=== PATIENT | male | born 1960 | race Caucasian/White ===

== ENCOUNTER 2023-03-21 12:43 | Inpatient (IN) | payer MEDICAID ==
[~2023-03-21] VITALS: Ht 175.3 cm; Wt 111.6 kg
[~2023-03-21 12:43] MED LIST: AMOX-422 PO; CYCL-394 PO; HYDR-2514 PO; HYDR1TAB PO; htn med
[2023-03-21 13:54] LABS: BASOPHILS % (AUTO) 0.5 % (0-1); EOSINOPHILS % (AUTO) 0.7 % (0-6); HEMATOCRIT 38.2 % (42.0-52.0); LYMPHOCYTES # (AUTO) 0.9 X10'3 (1.1-4.8); LYMPHOCYTES % (AUTO) 15.5 % (21-51); MEAN CORPUSCULAR HGB CONC 34.1 g/dL (33.0-36.5); MEAN CORPUSCULAR VOLUME 90.7 FL (78-98); MEAN PLATELET VOLUME 8.1 FL (7.4-10.4); MONOCYTES # (AUTO) 0.4 X10'3 (0-0.9); MONOCYTES % (AUTO) 7.1 % (2-12); NEUTROPHILS # (AUTO) 4.6 X10'3 (1.8-7.7); NEUTROPHILS % (AUTO) 76.2 % (42-75); PLATELET COUNT 150 X10'3 (140-440); RED BLOOD COUNT 4.21 X10'6 (4.70-6.10); RED CELL DISTRIBUTION WIDTH 12.8 % (11.5-14.5); WHITE BLOOD COUNT 6.1 X10'3 (4.5-11.0)
[2023-03-21 14:13] LABS: GLUCOSE 97 MG/DL (70-104); POTASSIUM 4.4 MMOL/L (3.5-5.1); SODIUM 138 MMOL/L (135-145)
[2023-03-21 14:14] LABS: ALANINE AMINOTRANSFERASE 22 U/L (12-78); ALBUMIN 3.6 G/DL (3.4-5.0); ALBUMIN/GLOBULIN RATIO 0.9 (1.1-1.5); ALKALINE PHOSPHATASE 95 IU/L (46-116); ANION GAP 9 (8-16); ASPARTATE AMINO TRANSFERASE 22 U/L (10-37); BILIRUBIN,TOTAL 0.8 MG/DL (0.1-1.0); BLOOD UREA NITROGEN 21 MG/DL (7-18); BUN/CREATININE RATIO 12.4 (10.0-20.0); CALCIUM 8.7 MG/DL (8.5-10.1); CHLORIDE 103 MMOL/L (99-107); CREATININE 1.69 MG/DL (0.60-1.10); TOTAL CARBON DIOXIDE 26.1 MMOL/L (24-32); TOTAL PROTEIN 7.6 G/DL (6.4-8.2); eCRCL 44 ML/MIN; eGFR 41 ML/MIN
[2023-03-21 14:23] LABS: ETHANOL < 10 MG/DL (<10); MAGNESIUM 1.8 MG/DL (1.5-2.4); PRO BRAIN NATRIURETIC PEPTIDE 6180 PG/ML (0-125)
[2023-03-21] MEDS ORDERED: nitroGLYCERIN 1gm ointment UD TP ONE (14:40)
[2023-03-21] MEDS ORDERED: heparin 10,000 units/1 ML INJ IV ONE (14:40)
[2023-03-21] MEDS ORDERED: aspirin 325mg tablet, delayed-release (Ecotrin) PO ONE (14:40)
[2023-03-21] MEDS ORDERED: furosemide 10 MG/1 ML 10ml inj IV ONE (14:50)
[2023-03-21] MEDS: heparin 25,000 UNIT/250ml bag 250 ML IV PRN (15:34)
[2023-03-21] MEDS ORDERED: traMADol 50MG tablet PO ONE (15:40)
[2023-03-21] MEDS ORDERED: LOSA50TA64 PO (16:21)
[2023-03-21] MEDS ORDERED: DILT180C76 PO (16:21)
[2023-03-21] MEDS ORDERED: DULO60CA65 PO (16:21)
[2023-03-21] MEDS ORDERED: TEMA30CA PO (16:21)
[2023-03-21] MEDS ORDERED: ARIP15TA19 PO (16:21)
[2023-03-21] MEDS ORDERED: TRAZ-256 PO (16:21)
[2023-03-21] MEDS ORDERED: TRAM50TA2 PO (16:21)
[2023-03-21] MEDS ORDERED: TIZA4CAP6 PO (16:21)
[2023-03-21 17:08] LABS: APTT 56 SECONDS (22-32); D-DIMER 8.47 MG/L FEU (0-0.50); INR 1.1 INR; PROTHROMBIN TIME 11.3 SECONDS (9.0-12.0)
[2023-03-21] MEDS ORDERED: acetaminophen 325mg tablet PO PRN (17:35)
[2023-03-21] MEDS ORDERED: potassium Cl 40MEQ/1/2NS 520ml 520 ML IV PRN (17:35)
[2023-03-21] MEDS ORDERED: magnesium hydroxide 30ml (MOM) UD suspension PO PRN (17:35)
[2023-03-21] MEDS ORDERED: mag hydrox/Alum hydrox/simeth 30ml oral suspension PO PRN (17:35)
[2023-03-21] MEDS ORDERED: morphine 2 MG/ML inj. syringe IV PRN (17:35)
[2023-03-21] MEDS ORDERED: potassium Cl 20 mEq SR tablet PO PRN ×2 (17:35)
[2023-03-21] MEDS ORDERED: magnesium 2GM in 50ml NS 50 ML IV PRN (17:35)
[2023-03-21] MEDS ORDERED: magnesium Cl slow-release 64mg tablet PO PRN (17:35)
[2023-03-21] MEDS ORDERED: ondansetron/PF 4mg/2ml inj IV PRN (17:35)
[2023-03-21] MEDS ORDERED: magnesium 4gm in 100ml NS 100 ML IV PRN (17:35)
[2023-03-21] MEDS ORDERED: temazepam 15mg capsule PO PRN (18:20)
[2023-03-21] MEDS ORDERED: tizanidine 4mg tablet PO PRN (18:20)
[2023-03-21] MEDS: docusate sod 100mg capsule PO SCH (20:00)
[2023-03-21] MEDS: K and/or MAG REPLACEMENT MC SCH (20:00)
[2023-03-21] MEDS ORDERED: heparin, porcine 5000 units/ml vial SQ SCH (20:00)
[2023-03-21] MEDS: traMADol 50MG tablet PO PRN (21:02)
[2023-03-21] MEDS: heparin 10,000 units/1 ML INJ IV PRN (22:26)
[2023-03-21 22:38] VITALS: BP 132/86; PULSE 92; RESP 20; TEMP 97.8; O2SAT 98
[2023-03-22 06:00] VITALS: BP 118/68; PULSE 89; RESP 20; TEMP 98.8; O2SAT 93
[2023-03-22 06:28] LABS: BASOPHILS % (AUTO) 0.5 % (0-1); EOSINOPHILS # (AUTO) 0.2 X10'3 (0-0.9); HEMATOCRIT 37.6 % (42.0-52.0); HEMOGLOBIN 12.8 g/dl (14.0-17.9); LYMPHOCYTES # (AUTO) 1.5 X10'3 (1.1-4.8); LYMPHOCYTES % (AUTO) 22.8 % (21-51); MEAN CORPUSCULAR HEMOGLOBIN 30.9 PG (27.0-31.0); MEAN CORPUSCULAR HGB CONC 34.1 g/dL (33.0-36.5); MEAN CORPUSCULAR VOLUME 90.6 FL (78-98); MEAN PLATELET VOLUME 7.7 FL (7.4-10.4); MONOCYTES # (AUTO) 0.4 X10'3 (0-0.9); MONOCYTES % (AUTO) 6.7 % (2-12); NEUTROPHILS # (AUTO) 4.4 X10'3 (1.8-7.7); PLATELET COUNT 164 X10'3 (140-440); RED BLOOD COUNT 4.15 X10'6 (4.70-6.10); RED CELL DISTRIBUTION WIDTH 12.5 % (11.5-14.5); WHITE BLOOD COUNT 6.5 X10'3 (4.5-11.0)
[2023-03-22 06:48] LABS: ALANINE AMINOTRANSFERASE 21 U/L (12-78); ALBUMIN 3.4 G/DL (3.4-5.0); ALBUMIN/GLOBULIN RATIO 0.9 (1.1-1.5); ALKALINE PHOSPHATASE 95 IU/L (46-116); ANION GAP 11 (8-16); ASPARTATE AMINO TRANSFERASE 23 U/L (10-37); BILIRUBIN,TOTAL 0.9 MG/DL (0.1-1.0); BLOOD UREA NITROGEN 21 MG/DL (7-18); BUN/CREATININE RATIO 13.1 (10.0-20.0); CALCIUM 8.4 MG/DL (8.5-10.1); CHLORIDE 102 MMOL/L (99-107); GLUCOSE 113 MG/DL (70-104); POTASSIUM 3.7 MMOL/L (3.5-5.1); SODIUM 139 MMOL/L (135-145); TOTAL CARBON DIOXIDE 26.4 MMOL/L (24-32); eCRCL 47 ML/MIN; eGFR 44 ML/MIN
[2023-03-22] MEDS: traMADol 50MG tablet PO PRN ×3 (07:16→22:49)
[2023-03-22] MEDS: K and/or MAG REPLACEMENT MC SCH ×2 (08:00→20:00)
[2023-03-22] MEDS: heparin 10,000 units/1 ML INJ IV PRN ×2 (08:06→16:17)
[2023-03-22] MEDS: ARIPIPRAZOLE 15 MG TABLET PO SCH (09:06)
[2023-03-22] MEDS: losartan 50mg tablet PO SCH (09:06)
[2023-03-22] MEDS: duloxetine 30mg CAPSULE.DR PO SCH (09:06)
[2023-03-22] MEDS: docusate sod 100mg capsule PO SCH ×2 (09:09→20:00)
[2023-03-22 10:00] VITALS: BP 107/77; PULSE 90; RESP 24; TEMP 97; O2SAT 93
[2023-03-22] MEDS ORDERED: pneumococcal 23-VAL P-sac vacc 25 mcg/0.5ml vial IMVAC ONE (10:00)
[2023-03-22] MEDS: furosemide 20 MG/2 ML vial IV SCH ×2 (13:06→20:09)
[2023-03-22] MEDS: heparin 25,000 UNIT/250ml bag 250 ML IV PRN (15:41)
[2023-03-22 18:00] VITALS: BP 149/83; PULSE 88; RESP 18; TEMP 98.4; O2SAT 93
[2023-03-22 22:00] VITALS: BP 112/86; PULSE 91; RESP 26; TEMP 97.7; O2SAT 90
[2023-03-23 00:10] VITALS: O2SAT 93
[2023-03-23 06:00] VITALS: BP 139/80; PULSE 76; RESP 19; TEMP 97.4; O2SAT 97
[2023-03-23 06:02] LABS: ALANINE AMINOTRANSFERASE 20 U/L (12-78); ALBUMIN 3.4 G/DL (3.4-5.0); ALBUMIN/GLOBULIN RATIO 0.9 (1.1-1.5); ALKALINE PHOSPHATASE 96 IU/L (46-116); ANION GAP 7 (8-16); ASPARTATE AMINO TRANSFERASE 19 U/L (10-37); BASOPHILS # (AUTO) 0.1 X10'3 (0-0.2); BILIRUBIN,TOTAL 0.9 MG/DL (0.1-1.0); BLOOD UREA NITROGEN 22 MG/DL (7-18); BUN/CREATININE RATIO 13.7 (10.0-20.0); CALCIUM 8.6 MG/DL (8.5-10.1); CHLORIDE 101 MMOL/L (99-107); CREATININE 1.61 MG/DL (0.60-1.10); EOSINOPHILS # (AUTO) 0.2 X10'3 (0-0.9); EOSINOPHILS % (AUTO) 2.6 % (0-6); GLUCOSE 116 MG/DL (70-104); HEMATOCRIT 38.3 % (42.0-52.0); HEMOGLOBIN 13.2 g/dl (14.0-17.9); LYMPHOCYTES # (AUTO) 1.8 X10'3 (1.1-4.8); LYMPHOCYTES % (AUTO) 31.1 % (21-51); MEAN CORPUSCULAR HEMOGLOBIN 31.2 PG (27.0-31.0); MEAN CORPUSCULAR HGB CONC 34.5 g/dL (33.0-36.5); MEAN CORPUSCULAR VOLUME 90.6 FL (78-98); MONOCYTES # (AUTO) 0.4 X10'3 (0-0.9); MONOCYTES % (AUTO) 6.9 % (2-12); NEUTROPHILS # (AUTO) 3.4 X10'3 (1.8-7.7); NEUTROPHILS % (AUTO) 58.4 % (42-75); PLATELET COUNT 188 X10'3 (140-440); POTASSIUM 3.6 MMOL/L (3.5-5.1); RED BLOOD COUNT 4.22 X10'6 (4.70-6.10); RED CELL DISTRIBUTION WIDTH 12.7 % (11.5-14.5); SODIUM 137 MMOL/L (135-145); TOTAL CARBON DIOXIDE 29.4 MMOL/L (24-32); TOTAL PROTEIN 7.4 G/DL (6.4-8.2); WHITE BLOOD COUNT 5.8 X10'3 (4.5-11.0); eCRCL 46 ML/MIN; eGFR 43 ML/MIN
[2023-03-23 06:30] VITALS: O2SAT 95
[2023-03-23] MEDS ORDERED: apixaban 5mg tablet PO SCH (08:00)
[2023-03-23] MEDS ORDERED: diltiazem CD 180mg cap (once-daily) PO SCH (08:00)
[2023-03-23] MEDS: K and/or MAG REPLACEMENT MC SCH (09:59)
[2023-03-23 10:00] VITALS: BP 110/63; PULSE 73; RESP 14; RESP 19; TEMP 97.5; O2SAT 97
[2023-03-23 10:11] VITALS: BP_SYST 110
[2023-03-23] MEDS: ARIPIPRAZOLE 15 MG TABLET PO SCH (10:11)
[2023-03-23] MEDS: duloxetine 30mg CAPSULE.DR PO SCH (10:11)
[2023-03-23] MEDS: losartan 50mg tablet PO SCH (10:11)
[2023-03-23] MEDS: furosemide 20 MG/2 ML vial IV SCH (10:12)
[2023-03-23] MEDS: traMADol 50MG tablet PO PRN (10:12)
[2023-03-23] MEDS: docusate sod 100mg capsule PO SCH (10:12)
[2023-03-23 11:12] VITALS: RESP 16
[2023-03-23] MEDS ORDERED: FURO-150 PO ×3 (11:20→15:13)
[2023-03-23] MEDS ORDERED: APIX5TAB3 PO ×3 (11:20→15:13)
[2023-03-26 10:03] LABS: PT 11.2 sec (9.1-12.0); aPTT 23.1 sec (22.9-30.2)
== END 2023-03-23 17:18 | disposition home or self-care (01) | DRG 134 ==
LOC: ER 12:44 → ED HOLD 17:41 → EDBEDREQ 21:19 → ORTHO 4S 21:45
PROVIDERS: ADMIT Internal Medicine; ATTEND Internal Medicine
PROC: 4B02XSZ Measurement of Cardiac Pacemaker, External Approach (ICD-10-PCS; principal; 2023-03-22)
DX: I26.09 Other pulmonary embolism with acute cor pulmonale (principal); N17.0 Acute kidney failure with tubular necrosis; I21.A1 Myocardial infarction type 2; I50.43 Acute on chronic combined systolic (congestive) and diastolic (congestive) heart failure; I48.91 Unspecified atrial fibrillation; I82.411 Acute embolism and thrombosis of right femoral vein; I82.431 Acute embolism and thrombosis of right popliteal vein; I82.441 Acute embolism and thrombosis of right tibial vein; Z88.8 Allergy status to other drugs, medicaments and biological substances; Z95.0 Presence of cardiac pacemaker; Z79.899 Other long term (current) drug therapy
CPT/HCPCS: 36415; 71045; 80053; 80320; 81479; 83735; 83880; 83891; 83894; 83898; 84145; 84484; 85025; 85379; 85610; 85611; 85730; 85732; 86146; 86147; 87081; 90732; 93005; 93306; 93970; 96365; 96375; 96376; 99285; A4620; G0378; J1644; J1940